=== PATIENT | female | born 1950 | race Hispanic/Latino ===

== ENCOUNTER 2021-02-08 20:36 | Observation (INO) | payer MEDICARE ==
--- NOTE | 2021-02-09 01:23 | Emergency Department Report ---
ED Chest Pain HPI - General Chief Complaint: Neuro Symptoms/Deficit Stated Complaint: CHEST PAIN/UNABLE TO SWALLOW Time Seen by Provider: 02/09/21 01:09 Source: EMS Mode of arrival: Ambulatory Limitations: No Limitations - History of Present Illness Initial Comments: 70-year-old female presents to the emergency department via EMS from home with complaint of difficulty swallowing and some midsternal chest discomfort. The patient says that she was eating hamburgers for dinner last night and suddenly she felt like she was unable to swallow. She began having severe lower throat pain and pain into the middle of her chest. Currently she says that the chest discomfort is 4 out of 10 in intensity. No known aggravating or alleviating factors. The patient has a past medical history of coronary artery disease with previous ID and 3 coronary stents, CVA in 2012 without residual deficits. She did not take anything, nor receive anything, for her symptoms prior to presentation today. Her primary care physician is a Dr. Caceres, and she follows with [facility] cardiology. - Related Data Home Medications Medication Instructions Recorded Confirmed Last Taken Amlodipine/Valsartan/Hcthiazid 07/09/14 07/09/14 07/08/14 [Exforge Hct 10-320-25 mg Tab] Aspirin [Aspirin BABY CHEW TAB] 81 mg PO QDAY 07/09/14 07/09/14 07/08/14 Atorvastatin Calcium [Lipitor] 20 mg PO QHS 07/09/14 07/09/14 07/08/14 Clopidogrel Bisulfate [Plavix] 75 mg PO 07/09/14 07/09/14 07/08/14 Divalproex ER [Depakote ER] 500 mg PO QDAY 07/09/14 07/09/14 07/08/14 Levothyroxine [Synthroid] 07/09/14 07/09/14 07/08/14 Venlafaxine HCl [Effexor Xr] 225 mg PO QDAY 07/09/14 07/09/14 07/08/14 Allergies Allergy/AdvReac Type Severity Reaction Status Date / Time latex Allergy Rash Verified 02/08/21 23:43 meperidine HCl [From Demerol] Allergy Rash Verified 02/08/21 23:43 Iodinated Contrast Media AdvReac Rash Verified 02/08/21 23:43 Heart Score - HEART Score History: Slightly suspicious EKG: Normal Age: > 65 Risk factors: > 3 risk factors or hx of atherosclerotic disease Troponin: < normal limit HEART Score: 4 - EKG Read Time Time EKG Completed: 03:11 EKG Read Time: 03:18 - Critical Actions Critical Actions: 4-6 pts:12-16.6% risk of adverse cardiac event. Should be admitted ED Review of Systems ROS: Stated complaint: CHEST PAIN/UNABLE TO SWALLOW Other details as noted in HPI Comment: All other systems reviewed and negative Constitutional: denies: chills, fever Eyes: denies: eye pain, vision change ENT: throat pain. denies: ear pain Respiratory: denies: cough, shortness of breath Cardiovascular: chest pain. denies: edema Gastrointestinal: denies: abdominal pain, vomiting Genitourinary: denies: dysuria, discharge Musculoskeletal: denies: back pain, arthralgia Skin: denies: rash, lesions Neurological: denies: headache, numbness, paresthesias ED Past Medical Hx - Past Medical History Hx Hypertension: Yes Hx CVA: Yes (2012) Hx Heart Attack/AMI: Yes - Surgical History Hx Cholecystectomy: Yes Additional Surgical History: stents x 4, - Social History Smoking Status: Never Smoker Substance Use Type: None - Medications Home Medications: Home Medications Medication Instructions Recorded Confirmed Last Taken Type Amlodipine/Valsartan/Hcthiazid 07/09/14 07/09/14 07/08/14 History [Exforge Hct 10-320-25 mg Tab] Aspirin [Aspirin BABY CHEW TAB] 81 mg PO QDAY 07/09/14 07/09/14 07/08/14 History Atorvastatin Calcium [Lipitor] 20 mg PO QHS 07/09/14 07/09/14 07/08/14 History Clopidogrel Bisulfate [Plavix] 75 mg PO 07/09/14 07/09/14 07/08/14 History Divalproex ER [Depakote ER] 500 mg PO QDAY 07/09/14 07/09/14 07/08/14 History Levothyroxine [Synthroid] 07/09/14 07/09/14 07/08/14 History Venlafaxine HCl [Effexor Xr] 225 mg PO QDAY 07/09/14 07/09/14 07/08/14 History ED Physical Exam - General Limitations: No Limitations - Other Other exam information: GENERAL: The patient is well-developed well-nourished. HENT: Normocephalic. Atraumatic. Patient has moist mucous membranes. EYES: Extraocular motions are intact. NECK: Supple. Trachea is midline. CHEST/LUNGS: Clear to auscultation. There is no respiratory distress noted. Chest pain is not reproducible to palpation of the chest wall. HEART/CARDIOVASCULAR: Regular. There is no tachycardia. There is no murmur. ABDOMEN: Abdomen is soft, nontender. Patient has normal bowel sounds. There is no abdominal distention. SKIN: Skin is warm and dry. NEURO: The patient is awake, alert, and oriented. The patient is cooperative. Cranial nerves II through XII grossly intact. No facial asymmetry. No pronator drift or dysmetria. Normal speech. MUSCULOSKELETAL: There is no tenderness or deformity. There is no limitation range of motion. ED Course Vital Signs 02/08/21 23:46 Temperature 98.1 F Pulse Rate 85 Respiratory 16 Rate Blood Pressure 104/64 O2 Sat by Pulse 93 Oximetry ED Medical Decision Making - Lab Data Result diagrams: 02/09/21 01:39 02/09/21 01:39 Lab Results 02/09/21 02/09/21 02/09/21 Range/Units 01:39 01:39 01:39 WBC 10.0 (4.5-11.0) K/mm3 RBC 4.62 (3.65-5.03) M/mm3 Hgb 13.9 (10.1-14.3) gm/dl Hct 40.8 (30.3-42.9) % MCV 88 (79-97) fl MCH 30 (28-32) pg MCHC 34 (30-34) % RDW 14.6 (13.2-15.2) % Plt Count 211 (140-440) K/mm3 Lymph % (Auto) 20.5 (13.4-35.0) % Barron % (Auto) 3.1 (0.0-7.3) % Eos % (Auto) 0.3 (0.0-4.3) % Baso % (Auto) 0.2 (0.0-1.8) % Lymph # (Auto) 2.0 (1.2-5.4) K/mm3 Barron # (Auto) 0.3 (0.0-0.8) K/mm3 Eos # (Auto) 0.0 (0.0-0.4) K/mm3 Baso # (Auto) 0.0 (0.0-0.1) K/mm3 Seg Neutrophils % 75.9 H (40.0-70.0) % Seg Neutrophils # 7.6 (1.8-7.7) K/mm3 PT 14.5 (12.2-14.9) Sec. INR 1.08 (0.87-1.13) Sodium 139 (137-145) mmol/L Potassium 3.5 L (3.6-5.0) mmol/L Chloride 97.0 L (98-107) mmol/L Carbon Dioxide 28 (22-30) mmol/L Anion Gap 18 mmol/L BUN 17 (7-17) mg/dL Creatinine 1.1 (0.6-1.2) mg/dL Estimated GFR 49 ml/min BUN/Creatinine Ratio 15 % Glucose 159 H (65-100) mg/dL Calcium 9.6 (8.4-10.2) mg/dL Total Bilirubin 0.50 (0.1-1.2) mg/dL AST 51 H (5-40) units/L ALT 48 (7-56) units/L Alkaline Phosphatase 168 H (35-129) units/L Troponin T < 0.010 (0.00-0.029) ng/mL Total Protein 7.7 (6.3-8.2) g/dL Albumin 4.1 (3.9-5) g/dL Albumin/Globulin Ratio 1.1 % TSH (0.270-4.200) mlU/mL 02/09/21 Range/Units 01:39 WBC (4.5-11.0) K/mm3 RBC (3.65-5.03) M/mm3 Hgb (10.1-14.3) gm/dl Hct (30.3-42.9) % MCV (79-97) fl MCH (28-32) pg MCHC (30-34) % RDW (13.2-15.2) % Plt Count (140-440) K/mm3 Lymph % (Auto) (13.4-35.0) % Barron % (Auto) (0.0-7.3) % Eos % (Auto) (0.0-4.3) % Baso % (Auto) (0.0-1.8) % Lymph # (Auto) (1.2-5.4) K/mm3 Barron # (Auto) (0.0-0.8) K/mm3 Eos # (Auto) (0.0-0.4) K/mm3 Baso # (Auto) (0.0-0.1) K/mm3 Seg Neutrophils % (40.0-70.0) % Seg Neutrophils # (1.8-7.7) K/mm3 PT (12.2-14.9) Sec. INR (0.87-1.13) Sodium (137-145) mmol/L Potassium (3.6-5.0) mmol/L Chloride (98-107) mmol/L Carbon Dioxide (22-30) mmol/L Anion Gap mmol/L BUN (7-17) mg/dL Creatinine (0.6-1.2) mg/dL Estimated GFR ml/min BUN/Creatinine Ratio % Glucose (65-100) mg/dL Calcium (8.4-10.2) mg/dL Total Bilirubin (0.1-1.2) mg/dL AST (5-40) units/L ALT (7-56) units/L Alkaline Phosphatase (35-129) units/L Troponin T (0.00-0.029) ng/mL Total Protein (6.3-8.2) g/dL Albumin (3.9-5) g/dL Albumin/Globulin Ratio % TSH 3.290 (0.270-4.200) mlU/mL - EKG Data -: EKG Interpreted by Me EKG shows normal: sinus rhythm, axis (Left axis deviation), intervals, QRS complexes (LVH), ST-T waves Rate: normal - EKG Data When compared to previous EKG there are: previous EKG unavailable Interpretation: LVH - Radiology Data Radiology results: report reviewed, image reviewed interpreted by me: Chest x-ray does not show any acute process. There are no pleural effusions, obvious pneumonia and there is no pneumothorax. No widened mediastinum. CT head without contrast INDICATION : Strokelike symptoms TECHNIQUE: Axial imaging performed from the skull apex through the skull base without the use of contrast. All CT examinations performed at this facility utilize dose modula tion, iterative reconstruction or weight-based dosing, when appropriate, to reduce radiation dose to as low as reasonably achievable. COMPARISON: 07/09/2014 FINDINGS: Mild diffuse cerebral atrophy. No acute intracranial hemorrhage. No extra-axial hemorrhage.. There is a focal lacunar infarct identified just to the left of midline in the region of the chance, similar to 07/09/2014. Prominent atherosclerotic calcification involving the visualized vertebral arteries and basilar artery, similar to the prior exam. Ventricles are normal in size and appear symmetric. Soft tissues including the orbits appear normal. No acute osseous abnormality. Sinuses and mastoid air cells are clear. IMPRESSION: Mild diffuse cerebral atrophy. No acute intracranial hemorrhage. No significant change from 07/09/2014. - Medical Decision Making This patient presents to the emergency department with the complaint of dysphagia, throat pain, and midsternal chest pain, that started last night around dinnertime. Patient does not have any visible drooling or trismus. Heart and lung sounds are normal to auscultation. She does not have any focal, motor or sensory deficits and her cranial nerves are intact. EKG does not show any morphology consistent with ST elevation myocardial i nfarction. CT of the head without contrast does not show any hemorrhage, large vessel occlusion, or any other acute process. Chest x-ray does not show any pneumonia, pleural effusions, pneumothorax, w idened mediastinum, or any other acute process. Labs have been mostly unremarkable thus far including CBC, metabolic panel and negative troponin. The patient is a zero on the NIH stroke scale. She has a heart score of four. Patient has history of previous CVA, and has a history of coronary artery disease with three coronary stents in place. She will be admitted to the hospital for further evaluation and treatment was accepted for admission by the hospitalist, Dr. Zambrano. Critical Care Time: No Critical care attestation.: If time is entered above; I have spent that time in minutes in the direct care of this critically ill patient, excluding procedure time. ED Disposition Clinical Impression: Midsternal chest pain, History of coronary artery disease, History of CVA (cerebrovascular accident) Dysphagia Qualifiers: Dysphagia type: unspecified Qualified Code(s): R13.10 - Dysphagia, unspecified Disposition: 09 ADMITTED INPATIENT Is pt being admited?: Yes Condition: Stable Time of Disposition: 04:08 - Assessment Assessment Interval: Baseline - Level of Consciousness 1a. Level of Consciousness: alert/keenly responsive - LOC Questions 1b. LOC Questions: answers both correctly - LOC Command 1c. LOC Commands: performs tasks correctly - Best Gaze 2. Best Gaze: normal - Visual 3. Visual: no visual loss - Facial Palsy 4. Facial Palsy: normal symmetrical movement - Motor Arm 5a. Motor Arm Left: no drift 5b. Motor Arm Right: no drift - Motor Leg 6a. Motor Leg Left: no drift 6b. Motor Leg Right: no drift - Limb Ataxia 7. Limb Ataxia: absent - Sensory 8. Sensory: normal - Best Language 9. Best Language: no aphasia - Dysarthria 10. Dysarthria: normal - Extinction and Inattention 11. Extinction/Inattention: no abnormality - Scoring Total Score: 0 Stroke Severity: No Stroke Symptoms
--- NOTE | 2021-02-09 01:45 | Cat Scan Report ---
CT head without contrast INDICATION : Strokelike symptoms TECHNIQUE: Axial imaging performed from the skull apex through the skull base without the use of con trast. All CT examinations performed at this facility utilize dose modulation, iterative reconstruct ion or weight-based dosing, when appropriate, to reduce radiation dose to as low as reasonably achiev able. COMPARISON: 07/09/2014 FINDINGS: Mild diffuse cerebral atrophy. No acute intracranial hemorrhage. No extra-axial hemorrhage. . There is a focal lacunar infarct identified just to the left of midline in the region of the chance, similar to 07/09/2014. Prominent atherosclerotic calcification involving the visualized vertebral arter ies and basilar artery, similar to the prior exam. Ventricles are normal in size and appear symmetri c. Soft tissues including the orbits appear normal. No acute osseous abnormality. Sinuses and m astoid air cells are clear. IMPRESSION: Mild diffuse cerebral atrophy. No acute intracranial hemorrhage. No significant change fr om 07/09/2014. Signer Name: Rj Holland MD Signed: 02/09/2021 1:41 AM Workstation Name: [id number]
[2021-02-09 02:13] LABS: Basophils % (Auto) 0.2 % (0.0-1.8); Eosinophils % (Auto) 0.3 % (0.0-4.3); Hematocrit 40.8 % (30.3-42.9); Hemoglobin 13.9 gm/dl (10.1-14.3); Lymphocytes % (Auto) 20.5 % (13.4-35.0); Mean Corpuscular HGB Conc 34 % (30-34); Mean Corpuscular Volume 88 fl (79-97); Monocytes # (Auto) 0.3 K/mm3 (0.0-0.8); Monocytes % (Auto) 3.1 % (0.0-7.3); Platelet Count 211 K/mm3 (140-440); Red Blood Count 4.62 M/mm3 (3.65-5.03); Red Cell Distribution Width 14.6 % (13.2-15.2)
--- NOTE | 2021-02-09 02:13 | XRay Report ---
CHEST 1 VIEW INDICATION / CLINICAL INFORMATION: CP. Chest pain FINDINGS: SUPPORT DEVICES: None. HEART / MEDIASTINUM: No significant abnormality. LUNGS / PLEURA: No significant pulmonary or pleural abnormality. No pneumothorax. ADDITIONAL FINDINGS: No significant additional findings. IMPRESSION: 1. No acute findings. Signer Name: Rj Holland MD Signed: 02/09/2021 2:08 AM Workstation Name: [id number]
[2021-02-09 02:23] LABS: INR 1.08 (0.87-1.13)
[2021-02-09] MEDS ORDERED: MORPHINE 4 MG/1 ML INJ IV ONE (02:28)
[2021-02-09] MEDS ORDERED: ONDANSETRON 4 MG/2 ML INJ IV ONE (02:28)
[2021-02-09] MEDS ORDERED: SODIUM CHLORIDE 0.9% 1000 ML 1,000 ML IV ONE (02:29)
[2021-02-09 02:31] LABS: Alanine Aminotransferase 48 units/L (7-56); Albumin 4.1 g/dL (3.9-5); BUN/Creatinine Ratio 15; Blood Urea Nitrogen 17 mg/dL (7-17); Calcium 9.6 mg/dL (8.4-10.2); Hemolysis Index 2
[2021-02-09] MEDS ORDERED: ONDANSETRON 4 MG/2 ML INJ IV PRN (04:18)
[2021-02-09] MEDS ORDERED: traMADol 50 MG TAB PO PRN (04:18)
[2021-02-09] MEDS ORDERED: MAGNESIUM HYDROXIDE (MOM) ORAL LIQD UDC PO PRN (04:18)
[2021-02-09] MEDS ORDERED: MORPHINE 4 MG/1 ML INJ IV PRN (04:18)
[2021-02-09] MEDS ORDERED: ACETAMINOPHEN 325 MG TAB PO PRN ×2 (04:18)
[2021-02-09] MEDS ORDERED: NITROGLYCERIN 0.4 MG TAB SUBL SL PRN (04:18)
[2021-02-09] MEDS ORDERED: MORPHINE 2 MG/1 ML INJ IV PRN (04:18)
--- NOTE | 2021-02-09 04:31 | History and Physical Report ---
History of Present Illness Date of examination: 02/09/21 Date of admission: 02/09/2021 Chief complaint: Chest Pain History of present illness: 70-year-old female with known history of hypertension and coronary artery disease with stent placement in the past presents to the emergency room today complaining of midsternal chest discomfort. Symptoms were said to have started after eating some hamburgers last night and suddenly felt she was unable to swallow. Pain is said to be about 4/10 in severity. No no relieving or exacerbating factor. She has significant history of OR with 3 stents in the past, CVA with no residual deficit. Patient follows up with [facility]. She denies any fever or chills, no headache or dizziness, no diaphoresis. Patient denies any nausea vomiting and no abdominal pain. Work-up in the emergency room today, EKG, chest x-ray and labs has been unremarkable. Past History Past Medical History: CAD (X4 stents), hypertension, stroke (2012) Past Surgical History: cholecystectomy Social history: no significant social history Family history: no significant family history Medications and Allergies Allergies Allergy/AdvReac Type Severity Reaction Status Date / Time latex Allergy Rash Verified 02/08/21 23:43 meperidine HCl [From Demerol] Allergy Rash Verified 02/08/21 23:43 Iodinated Contrast Media AdvReac Rash Verified 02/08/21 23:43 Home Medications Medication Instructions Recorded Confirmed Last Taken Type Amlodipine/Valsartan/Hcthiazid 07/09/14 07/09/14 07/08/14 History [Exforge Hct 10-320-25 mg Tab] Aspirin [Aspirin BABY CHEW TAB] 81 mg PO QDAY 07/09/14 07/09/14 07/08/14 History Atorvastatin Calcium [Lipitor] 20 mg PO QHS 07/09/14 07/09/14 07/08/14 History Clopidogrel Bisulfate [Plavix] 75 mg PO 07/09/14 07/09/14 07/08/14 History Divalproex ER [Depakote ER] 500 mg PO QDAY 07/09/14 07/09/14 07/08/14 History Levothyroxine [Synthroid] 07/09/14 07/09/14 07/08/14 History Venlafaxine HCl [Effexor Xr] 225 mg PO QDAY 07/09/14 07/09/14 07/08/14 History Active Meds: Active Medications Sodium Chloride (Nacl 0.9% 1000 Ml) 1,000 mls @ 125 mls/hr IV ONCE ONE Stop: 02/09/21 10:28 Review of Systems Constitutional: no fever, no chills Ears, nose, mouth and throat: no nasal congestion, no sore throat Cardiovascular: chest pain, no palpitations Respiratory: no cough, no shortness of breath Gastrointestinal: no abdominal pain, no nausea, no vomiting, no diarrhea Genitourinary Female: no pelvic pain, no flank pain, no dysuria Musculoskeletal: no neck pain, no low back pain Integumentary: no rash, no pruritis Neurological: no headaches, no confusion Psychiatric: no anxiety, no depression Endocrine: no polyphagia, no polydipsia, no polyuria, no nocturia Exam - Constitutional Vitals: Temp Pulse Resp BP Pulse Ox 98.1 F 77 16 97/61 96 02/08/21 23:46 02/09/21 03:40 02/09/21 03:40 02/09/21 03:40 02/09/21 03:40 General appearance: Present: no acute distress, well-nourished - EENT Eyes: Present: PERRL, EOM intact. Absent: scleral icterus ENT: hearing intact, clear oral mucosa, dentition normal - Neck Neck: Present: supple, normal ROM - Respiratory Respiratory effort: normal Respiratory: bilateral: CTA - Cardiovascular Rhythm: regular Heart Sounds: Present: S1 & S2. Absent: gallop, systolic murmur, diastolic murmur, rub, click - Extremities Extremities: no ischemia, pulses intact, pulses symmetrical, No edema, normal temperature, normal color, Full ROM Peripheral Pulses: within normal limits - Abdominal General gastrointestinal: Present: soft, non-tender, non-distended, normal bowel sounds. Absent: mass - Integumentary Integumentary: Present: clear, warm, dry, normal turgor. Absent: rash - Musculoskeletal Musculoskeletal: strength equal bilaterally - Psychiatric Psychiatric: appropriate mood/affect, intact judgment & insight, memory intact, cooperative - Neurologic Neurologic: CNII-XII intact, no focal deficits, moves all extremities HEART Score - HEART Score History: Slightly suspicious EKG: Normal Age: > 65 Risk factors: > 3 risk factors or hx of atherosclerotic disease Troponin: Troponin T < 0.010 ng/mL (0.00-0.029) 02/09/21 01:39 Troponin: < normal limit HEART Score: 4 - Critical Actions Critical Actions: 4-6 pts:12-16.6% risk of adverse cardiac event. Should be admitted Results - Labs CBC & Chem 7: 02/09/21 04:34 02/09/21 04:14 Labs: Abnormal lab results 02/09/21 02/09/21 Range/Units 01:39 01:39 Seg Neutrophils % 75.9 H (40.0-70.0) % Potassium 3.5 L (3.6-5.0) mmol/L Chloride 97.0 L (98-107) mmol/L Glucose 159 H (65-100) mg/dL AST 51 H (5-40) units/L Alkaline Phosphatase 168 H (35-129) units/L Assessment and Plan - Patient Problems (1) Midsternal chest pain Current Visit: Yes Status: Acute Plan to address problem: Patient admitted and placed on telemetry. We will commence on daily aspirin, patient will be placed on sublingual nitroglycerin and IV morphine as needed for chest pain. Consult placed to cardiology- [facility] for further evaluation (2) Hypertension Current Visit: Yes Status: Acute Plan to address problem: We will resume routine home medications once reconciled. We will monitor vital signs closely. (3) DVT prophylaxis Current Visit: Yes Status: Acute Plan to address problem: Patient placed on subcutaneous heparin. (4) Full code status Current Visit: Yes Status: Acute Plan to address problem: Patient is full code.
[2021-02-09 04:53] LABS: Basophils % (Auto) 0.4 % (0.0-1.8); Eosinophils % (Auto) 0.4 % (0.0-4.3); Hematocrit 37.6 % (30.3-42.9); Hemoglobin 13.1 gm/dl (10.1-14.3); Lymphocytes # (Auto) 2.1 K/mm3 (1.2-5.4); Lymphocytes % (Auto) 22.2 % (13.4-35.0); Mean Corpuscular HGB Conc 35 % (30-34); Mean Corpuscular Volume 87 fl (79-97); Monocytes # (Auto) 0.5 K/mm3 (0.0-0.8); Monocytes % (Auto) 5.1 % (0.0-7.3); Platelet Count 193 K/mm3 (140-440); Red Cell Distribution Width 14.7 % (13.2-15.2)
[2021-02-09 06:53] LABS: Calcium 9.5 mg/dL (8.4-10.2)
[2021-02-09] MEDS ORDERED: REGADENOSON 0.4 MG/5 ML INJ IV ONE (06:57)
[2021-02-09] MEDS ORDERED: DIVALPROEX ER 500 MG TAB PO SCH (10:00)
[2021-02-09] MEDS ORDERED: NON-FORMULARY EACH (Venlafaxine Hcl [Effexor Xr] 150 MG Cap.Er.24h) PO SCH (10:00)
[2021-02-09] MEDS ORDERED: LEVOTHYROXINE 25 MCG TAB PO SCH (10:00)
[2021-02-09] MEDS ORDERED: VENLAFAXINE XR 75 MG CAP PO SCH (10:00)
--- NOTE | 2021-02-09 10:07 | Consultation ---
History of Present Illness Consult date: 02/09/21 Consult reason: chest pain History of present illness: The patient is a 70-year-old woman who presented to the emergency room with c omplaints of dysphagia. She states that yesterday she was eating a hamburger, when she was unable to swallow, causing protracted discomfort and regurgitation, cough and several hours of retching and dry heaves. Her symptoms culminated in chest and epigastric discomfort, and she presented to the emergency room. A twelve-lead ECG was sinus rhythm with left ventricle hypertrophy, no ST or T wave changes, and serial troponin levels x3 were normal. She was ordered for a stress test by the medical service. The patient describes a history of dysphagia both to solids and liquids, which she states has never been evaluated by a plastic and reconstructive surgeon. She tells me that her symptoms eventually resolved, and so she has not felt the need to have further evaluation. She currently looks and feels well, but has not had any further oral intake since her admission to the hospital. Patient has a cardiac history of coronary artery disease and previous coronary stents. 3 years ago, a cardiac catheterization at [facility] found her stents to be patent. She had a negative thallium stress test with her primary crm business analyst Dr Flores about a year ago. Past History Past Medical History: CAD (X4 stents), hypertension, stroke (2012) Past Surgical History: cholecystectomy Social history: no significant social history Family history: no significant family history Medications and Allergies Allergies Allergy/AdvReac Type Severity Reaction Status Date / Time latex Allergy Rash Verified 02/09/21 09:00 meperidine HCl [From Demerol] Allergy Rash Verified 02/09/21 09:00 Iodinated Contrast Media AdvReac Rash Verified 02/09/21 09:00 Home Medications Medication Instructions Recorded Confirmed Last Taken Type Amlodipine/Valsartan/Hcthiazid 07/09/14 07/09/14 07/08/14 History [Exforge Hct 10-320-25 mg Tab] Aspirin [Aspirin BABY CHEW TAB] 81 mg PO QDAY 07/09/14 07/09/14 07/08/14 History Atorvastatin Calcium [Lipitor] 20 mg PO QHS 07/09/14 07/09/14 07/08/14 History Clopidogrel Bisulfate [Plavix] 75 mg PO 07/09/14 07/09/14 07/08/14 History Divalproex ER [Depakote ER] 500 mg PO QDAY 07/09/14 07/09/14 07/08/14 History Levothyroxine [Synthroid] 07/09/14 07/09/14 07/08/14 History Venlafaxine HCl [Effexor Xr] 225 mg PO QDAY 07/09/14 07/09/14 07/08/14 History Active Meds: Active Medications Acetaminophen (Acetaminophen 325 Mg Tab) 650 mg PO Q4H PRN PRN Reason: Pain MILD(1-3)/Fever >100.5/RUELAS Aspirin (Aspirin Ec 325 Mg Tab) 325 mg PO QDAY [facility] Atorvastatin Calcium (Atorvastatin 20 Mg Tab) 20 mg PO QHS [facility] Divalproex Sodium (Divalproex Er 500 Mg Tab) 500 mg PO QDAY [facility] Heparin Sodium (Porcine) (Heparin 5,000 Unit/1 Ml Vial) 5,000 unit SUB-Q Q8HR [facility] Sodium Chloride (Nacl 0.9% 1000 Ml) 1,000 mls @ 125 mls/hr IV ONCE ONE Stop: 02/09/21 10:28 Last Admin: 02/09/21 05:03 Dose: 125 mls/hr Documented by: Levothyroxine Sodium (Levothyroxine 25 Mcg Tab) 25 mcg PO 0600 [facility] Magnesium Hydroxide (Magnesium Hydroxide (Mom) Oral Liqd Udc) 30 ml PO Q4H PRN PRN Reason: Constipation Morphine Sulfate (Morphine 2 Mg/1 Ml Inj) 2 mg IV Q4H PRN PRN Reason: Pain, Moderate (4-6) Morphine Sulfate (Morphine 4 Mg/1 Ml Inj) 4 mg IV Q4H PRN PRN Reason: Pain , Severe (7-10) Nitroglycerin (Nitroglycerin 0.4 Mg Tab Subl) 0.4 mg SL Q5M PRN PRN Reason: Chest Pain Ondansetron HCl (Ondansetron 4 Mg/2 Ml Inj) 4 mg IV Q8H PRN PRN Reason: Nausea And Vomiting Sodium Chloride (Sodium Chloride 0.9% 10 Ml Flush Syringe) 10 ml IV BID [facility] Sodium Chloride (Sodium Chloride 0.9% 10 Ml Flush Syringe) 10 ml IV PRN PRN PRN Reason: LINE FLUSH Tramadol HCl (Tramadol 50 Mg Tab) 50 mg PO Q6H PRN PRN Reason: Pain, Moderate (4-6) Venlafaxine HCl (Venlafaxine Xr 75 Mg Cap) 225 mg PO QDAY [facility] Review of Systems Cardiovascular: chest pain, no orthopnea, no palpitations, no rapid/irregular heart beat, no edema, no syncope, no lightheadedness, no shortness of breath Physical Examination Vital Signs Temp Pulse Resp BP Pulse Ox 98.1 F 85 16 104/64 93 02/08/21 23:46 02/08/21 23:46 02/08/21 23:46 02/08/21 23:46 02/08/21 23:46 General appearance: no acute distress HEENT: Positive: PERRL Neck: Positive: neck supple Cardiac: Positive: Reg Rate and Rhythm Lungs: Positive: clear to auscultation Neuro: Positive: Grossly Intact Abdomen: Positive: Soft Female genitourinary: deferred Skin: Positive: Clear Extremities: Absent: edema Results 02/09/21 04:34 02/09/21 04:14 Cardiac Enzymes 02/09/21 Range/Units 01:39 AST 51 H (5-40) units/L Coagulation 02/09/21 Range/Units 01:39 PT 14.5 (12.2-14.9) Sec. INR 1.08 (0.87-1.13) CBC 02/09/21 02/09/21 Range/Units 01:39 04:34 WBC 10.0 9.5 (4.5-11.0) K/mm3 RBC 4.62 4.30 (3.65-5.03) M/mm3 Hgb 13.9 13.1 (10.1-14.3) gm/dl Hct 40.8 37.6 (30.3-42.9) % Plt Count 211 193 (140-440) K/mm3 Lymph # (Auto) 2.0 2.1 (1.2-5.4) K/mm3 [place] # (Auto) 0.3 0.5 (0.0-0.8) K/mm3 Eos # (Auto) 0.0 0.0 (0.0-0.4) K/mm3 Baso # (Auto) 0.0 0.0 (0.0-0.1) K/mm3 Comprehensive Metabolic Panel 02/09/21 02/09/21 Range/Units 01:39 04:14 Sodium 139 139 (137-145) mmol/L Potassium 3.5 L 3.6 (3.6-5.0) mmol/L Chloride 97.0 L 95.3 L (98-107) mmol/L Carbon Dioxide 28 26 (22-30) mmol/L BUN 17 17 (7-17) mg/dL Creatinine 1.1 1.0 (0.6-1.2) mg/dL Glucose 159 H 156 H (65-100) mg/dL Calcium 9.6 9.5 (8.4-10.2) mg/dL AST 51 H (5-40) units/L ALT 48 (7-56) units/L Alkaline Phosphatase 168 H (35-129) units/L Total Protein 7.7 (6.3-8.2) g/dL Albumin 4.1 (3.9-5) g/dL EKG interpretations - Telemetry EKG Rhythm: Sinus Rhythm Assessment and Plan - Patient Problems (1) Dysphagia Current Visit: Yes Status: Acute Qualifiers: Dysphagia type: unspecified Qualified Code(s): R13.10 - Dysphagia, unspecified Plan to address problem: The patient presents to the emergency room with severe dysphagia, symptoms which were protracted over several hours, and culminated in chest pain likely due to gastroesophageal reflux and musculoskeletal pain from protracted coughing. In this scenario, no further cardiac work-up is indicated, will be prudent to obtain a GI evaluation of her chronic symptoms of dysphagia. Will follow intermittently.
[2021-02-09] MEDS: HEPARIN 5,000 UNIT/1 ML VIAL SUB-Q SCH ×2 (12:21→14:42)
[2021-02-09 12:46] VITALS: BP 129/76
--- NOTE | 2021-02-09 13:35 | Event Note ---
Date: 02/09/21 Lexiscan thallium stress test shows normal myocardial perfusion in all segments, normal left ventricular systolic function, ejection fraction 58%, normal study.
--- NOTE | 2021-02-09 14:51 | Event Note ---
Date: 02/09/21 -Patient has negative stress test -We will have speech eval and GI consult for dysphagia
[2021-02-09] MEDS ORDERED: CLOPIDOGREL 75 MG TAB PO SCH (15:00)
--- NOTE | 2021-02-09 15:15 | Gastroenterology Consultation ---
History of Present Illness - Reason for Consult Consult date: 02/09/21 dysphagia Requesting physician: CARROL GARRETT - History of Present Illness Is a pleasant 62-year-old female from GI is consulted for dysphagia She reports that for the last few months she has been having intermittent stable dysphagia to both solids and liquids would happen a few times a week and was not consistent. With solids or with liquids. Denies reflux denies weight loss However yesterday she said she was eating a hamburger and it got caught and was causing severe chest discomfort and was much much harder for her to get it out than it has ever been in the past She finally got out and is finally starting to feel almost back to normal She has not had a GI evaluation for this in the past Did have cardiac eval which was negative Obtained/updated/reviewed patient's current medications Past History Past Medical History: CAD (X4 stents), hypertension, stroke (2012) Past Surgical History: cholecystectomy Social history: no significant social history Family history: no significant family history Medications and Allergies Allergies Allergy/AdvReac Type Severity Reaction Status Date / Time latex Allergy Rash Verified 02/09/21 09:00 meperidine HCl [From Demerol] Allergy Rash Verified 02/09/21 09:00 Iodinated Contrast Media AdvReac Rash Verified 02/09/21 09:00 Home Medications Medication Instructions Recorded Confirmed Last Taken Type Amlodipine/Valsartan/Hcthiazid 07/09/14 07/09/14 07/08/14 History [Exforge Hct 10-320-25 mg Tab] Aspirin [Aspirin BABY CHEW TAB] 81 mg PO QDAY 07/09/14 07/09/14 07/08/14 History Atorvastatin Calcium [Lipitor] 20 mg PO QHS 07/09/14 07/09/14 07/08/14 History Clopidogrel Bisulfate [Plavix] 75 mg PO 07/09/14 07/09/14 07/08/14 History Divalproex ER [Depakote ER] 500 mg PO QDAY 07/09/14 07/09/14 07/08/14 History Levothyroxine [Synthroid] 07/09/14 07/09/14 07/08/14 History Venlafaxine HCl [Effexor Xr] 225 mg PO QDAY 07/09/14 07/09/14 07/08/14 History Active Meds: Active Medications Acetaminophen (Acetaminophen 325 Mg Tab) 650 mg PO Q4H PRN PRN Reason: Pain MILD(1-3)/Fever >100.5/RUELAS Aspirin (Aspirin 81 Mg Tab Chew) 81 mg PO QDAY [facility] Atorvastatin Calcium (Atorvastatin 20 Mg Tab) 20 mg PO QHS [facility] Clopidogrel Bisulfate (Clopidogrel 75 Mg Tab) 75 mg PO DAILY [facility] Divalproex Sodium (Divalproex Er 500 Mg Tab) 500 mg PO QDAY [facility] Heparin Sodium (Porcine) (Heparin 5,000 Unit/1 Ml Vial) 5,000 unit SUB-Q Q8HR [facility] Last Admin: 02/09/21 14:42 Dose: Not Given Documented by: Levothyroxine Sodium (Levothyroxine 25 Mcg Tab) 25 mcg PO 0600 [facility] Last Admin: 02/09/21 12:21 Dose: 25 mcg Documented by: Magnesium Hydroxide (Magnesium Hydroxide (Mom) Oral Liqd Udc) 30 ml PO Q4H PRN PRN Reason: Constipation Morphine Sulfate (Morphine 2 Mg/1 Ml Inj) 2 mg IV Q4H PRN PRN Reason: Pain, Moderate (4-6) Morphine Sulfate (Morphine 4 Mg/1 Ml Inj) 4 mg IV Q4H PRN PRN Reason: Pain , Severe (7-10) Nitroglycerin (Nitroglycerin 0.4 Mg Tab Subl) 0.4 mg SL Q5M PRN PRN Reason: Chest Pain Ondansetron HCl (Ondansetron 4 Mg/2 Ml Inj) 4 mg IV Q8H PRN PRN Reason: Nausea And Vomiting Sodium Chloride (Sodium Chloride 0.9% 10 Ml Flush Syringe) 10 ml IV BID [facility] Last Admin: 02/09/21 12:21 Dose: 10 ml Documented by: Sodium Chloride (Sodium Chloride 0.9% 10 Ml Flush Syringe) 10 ml IV PRN PRN PRN Reason: LINE FLUSH Tramadol HCl (Tramadol 50 Mg Tab) 50 mg PO Q6H PRN PRN Reason: Pain, Moderate (4-6) Last Admin: 02/09/21 12:21 Dose: 50 mg Documented by: Venlafaxine HCl (Venlafaxine Xr 75 Mg Cap) 225 mg PO QDAY [facility] Last Admin: 02/09/21 12:20 Dose: 225 mg Documented by: Review of Systems - Review of Systems All systems: negative (10 Systems reviewed and negative except as mentioned above in the history of present illness) Exam - Constitutional Vital Signs: Temp Pulse Resp BP Pulse Ox 97.2 F L 71 16 129/76 92 02/09/21 12:36 02/09/21 12:36 02/09/21 12:36 02/09/21 12:36 02/09/21 12:36 General appearance: no acute distress - EENT Eyes: EOM intact ENT: hearing intact - Neck Neck: supple - Respiratory Respiratory effort: normal - Cardiovascular Rhythm: regular - Gastrointestinal General gastrointestinal: Present: soft, non-tender - Integumentary Integumentary: Present: dry - Neurologic Neurological: alert and oriented x3 - Psychiatric Psychiatric: appropriate mood/affect - Labs CBC & Chem 7: 02/09/21 04:34 02/09/21 04:14 Lab Results: Laboratory Results - last 24 hr 02/09/21 02/09/21 02/09/21 01:39 01:39 01:39 WBC 10.0 RBC 4.62 Hgb 13.9 Hct 40.8 MCV 88 MCH 30 MCHC 34 RDW 14.6 Plt Count 211 Lymph % (Auto) 20.5 [place] % (Auto) 3.1 Eos % (Auto) 0.3 Baso % (Auto) 0.2 Lymph # (Auto) 2.0 [place] # (Auto) 0.3 Eos # (Auto) 0.0 Baso # (Auto) 0.0 Seg Neutrophils % 75.9 H Seg Neutrophils # 7.6 PT 14.5 INR 1.08 Sodium 139 Potassium 3.5 L Chloride 97.0 L Carbon Dioxide 28 Anion Gap 18 BUN 17 Creatinine 1.1 Estimated GFR 49 BUN/Creatinine Ratio 15 Glucose 159 H Calcium 9.6 Total Bilirubin 0.50 AST 51 H ALT 48 Alkaline Phosphatase 168 H Troponin T < 0.010 Total Protein 7.7 Albumin 4.1 Albumin/Globulin Ratio 1.1 TSH 02/09/21 02/09/21 02/09/21 01:39 04:14 04:14 WBC RBC Hgb Hct MCV MCH MCHC RDW Plt Count Lymph % (Auto) [place] % (Auto) Eos % (Auto) Baso % (Auto) Lymph # (Auto) [place] # (Auto) Eos # (Auto) Baso # (Auto) Seg Neutrophils % Seg Neutrophils # PT INR Sodium 139 Potassium 3.6 Chloride 95.3 L Carbon Dioxide 26 Anion Gap 21 BUN 17 Creatinine 1.0 Estimated GFR 55 BUN/Creatinine Ratio 17 Glucose 156 H Calcium 9.5 Total Bilirubin AST ALT Alkaline Phosphatase Troponin T < 0.010 Total Protein Albumin Albumin/Globulin Ratio TSH 3.290 02/09/21 02/09/21 04:34 07:03 WBC 9.5 RBC 4.30 Hgb 13.1 Hct 37.6 MCV 87 MCH 31 MCHC 35 H RDW 14.7 Plt Count 193 Lymph % (Auto) 22.2 [place] % (Auto) 5.1 Eos % (Auto) 0.4 Baso % (Auto) 0.4 Lymph # (Auto) 2.1 [place] # (Auto) 0.5 Eos # (Auto) 0.0 Baso # (Auto) 0.0 Seg Neutrophils % 71.9 H Seg Neutrophils # 6.8 PT INR Sodium Potassium Chloride Carbon Dioxide Anion Gap BUN Creatinine Estimated GFR BUN/Creatinine Ratio Glucose Calcium Total Bilirubin AST ALT Alkaline Phosphatase Troponin T < 0.010 Total Protein Albumin Albumin/Globulin Ratio TSH Assessment and Plan Patient with recurrent dysphagia with more severe episode recently Patient should undergo EGD at some point However, the Endo suite is fully booked tomorrow and she can have the procedure done at least until Tuesday I discussed this with her and she would prefer to do this as an outpatient Therefore from GI perspective as she is doing better she can be discharged on a pured consistency diet and I will have my office reach out to her and get her set up with me within a week - Patient Problems (1) Dysphagia Current Visit: Yes Status: Acute Qualifiers: Dysphagia type: unspecified Qualified Code(s): R13.10 - Dysphagia, unspecified
--- NOTE | 2021-02-09 16:21 | Discharge Summary ---
Providers - Providers Date of Admission: 02/09/21 04:18 Date of discharge: 02/09/21 Attending physician: CARROL GARRETT 02/09/21 Consult to Cardiac Rehabilitation [CONS] Routine Reason For Exam: Phase I 02/09/21 04:18 Consult to Cardiology [CONS] Routine Consulting Provider: CONRAD TALBERT Reason For Exam: chest pain 02/09/21 12:36 Consult to Physician [CONS] Routine Comment: Consulting Provider: JEWELL MYERS Physician Instructions: Reason For Exam: dysphagia Speech Therapy Evaluation and Treat [CONS] Routine Reason For Exam: dysphagia Primary care physician: DIRECTOR CARD Hospitalization Condition: Stable Disposition: 01 HOME / SELF CARE / HOMELESS Final Discharge Diagnosis (Prints w/discharge instructions): Noncardiac chest pain, resolved, likely from chocking. Dysphagia, outpt f/u with GI. h/o CAD (X4 stents),. hypertension,. h/o stroke (2012) Time spent for discharge: 34 minutes Core Measure Documentation - Palliative Care Palliative Care/ Comfort Measures: Not Applicable - Core Measures Any of the following diagnoses?: none Exam - Constitutional Vitals: Temp Pulse Resp BP Pulse Ox 97.2 F L 71 16 129/76 92 02/09/21 12:36 02/09/21 12:36 02/09/21 12:36 02/09/21 12:36 02/09/21 12:36 Plan Activity: advance as tolerated Weight Bearing Status: Weight Bear as Tolerated Diet: low fat, low salt, other (mechanical soft diet) Additional Instructions: f/u with GI for outpt EGD Follow up with: ROBERT SALAS MD [Primary Care Provider] - 3-5 Days GUILLERMO MARSH MD [Staff Physician] - 7 Days
[2021-02-10] MEDS ORDERED: ASPIRIN EC 325 MG TAB PO SCH (10:00)
[2021-02-10] MEDS ORDERED: ASPIRIN 81 MG TAB CHEW PO SCH (10:00)
--- NOTE | 2021-02-11 10:09 | Electrocardiograph Report ---
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
--- NOTE | 2021-02-11 10:09 | Electrocardiograph Report ---
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
--- NOTE | 2021-02-11 11:43 | Electrocardiograph Report ---
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
== END 2021-02-09 18:40 | disposition home or self-care (01) ==
LOC: ED 20:36 → 4A 02-09 04:18
PROVIDERS: ADMIT Internal Medicine Geriatric Medicine; ATTEND Internal Medicine
DX: R07.2 Precordial pain (principal); I10 Essential (primary) hypertension; I25.10 Atherosclerotic heart disease of native coronary artery without angina pectoris; G31.9 Degenerative disease of nervous system, unspecified; R51.9 Headache, unspecified; Z95.1 Presence of aortocoronary bypass graft; Z90.49 Acquired absence of other specified parts of digestive tract; Z79.82 Long term (current) use of aspirin; Z86.73 Personal history of transient ischemic attack (TIA), and cerebral infarction without residual deficits
CPT/HCPCS: 36415; 70450; 71045; 78452; 80053; 84443; 84484; 85025; 85610; 92610; 93005; 93017; 96361; 96372; 96374; 96375; 99285; A9502; G0378; J1644; J2270; J2405; J2785; J7030; 80048